=== PATIENT | female | born 1945 | race Caucasian/White ===

== ENCOUNTER 2022-09-04 12:33 | Emergency (ER) | payer OTHER ==
[~2022-09-04] VITALS: Ht 160 cm; Wt 65.3 kg
--- NOTE | 2022-09-04 12:35 | NUR ---
ARACELY BLAIR from home with c/o chest pain for approx 3 hours, pt to room 1A via EMS gurney. Pt states she was lying on the couch and had onset of sharp chest pain. Pt was given ASA 324mg po and NTG SL x 1 by EMS in route to ER. On arrival pt states she is pain free. Pt was seen and examined by .
[2022-09-04 13:18] LABS: HEMATOCRIT 40.7 % (31.2-41.9); MEAN CORPUSCULAR HEMOGLOBIN 28.6 uug (24.7-32.8); MEAN CORPUSCULAR VOLUME 84.7 fL (75.5-95.3); PLATELET COUNT (AUTO) 154 K/uL (179-408)
[2022-09-04 13:38] LABS: CARBON DIOXIDE 29 mmol/L (21-32); CHLORIDE 104 mmol/L (98-107); CREATININE 0.7 mg/dL (0.6-1.3); GLUCOSE 110 mg/dL (74-106); POTASSIUM 3.6 mmol/L (3.5-5.1); UREA NITROGEN, BLOOD 16 mg/dL (7-18)
--- NOTE | 2022-09-04 18:25 | NUR ---
Received telephone call from [facility] with transfer information. Facility: [facility] Room: 5108-Tele Accepting doctor: Transport: [facility], ETA 1945 Report: Call [phone] for report
--- NOTE | 2022-09-04 19:04 | NUR ---
Patient awaiting transfer to [facility] (Room 5108). Report given to RN at [place] ([phone] @ Time: 1853). Ambulance pick up truck driver scheduled for 1944. Accepting physician: Dr. Landry.
--- NOTE | 2022-09-04 19:53 | NUR ---
Patient Tranfers to outside Facility Physician: Dr Landry Location: [facility]
== END 2022-09-04 19:59 | disposition short-term general hospital (02) ==
LOC: ER 12:33
DX: R07.9 Chest pain, unspecified (principal); D69.6 Thrombocytopenia, unspecified; I10 Essential (primary) hypertension; Z88.4 Allergy status to anesthetic agent; Z20.822 Contact with and (suspected) exposure to COVID-19
CPT/HCPCS: 36415; 71045; 84484; 85025; 93005; A4663